=== PATIENT | female | born 1970 | race Hispanic/Latino ===

== ENCOUNTER 2017-08-17 14:49 | Emergency (ER) | payer OTHER ==
[~2017-08-17] VITALS: Ht 172.7 cm; Wt 68.5 kg
[~2017-08-17 14:49] MED LIST: AMOXICILLIN500 MG PO; INDOCIN50 MG PO
[2017-08-17] MEDS ORDERED: MOTRIN800 MG PO (15:59)
[2017-08-17] MEDS ORDERED: FLEXERIL10 MG PO (15:59)
[2017-08-17] MEDS ORDERED: LIDODERM 5% P1 PATCH TD (15:59)
[2017-08-17 16:54] VITALS: BP 113/69
== END 2017-08-17 17:07 | disposition home or self-care (01) ==
LOC: EME 14:49
DX: M54.2 Cervicalgia (principal); M25.511 Pain in right shoulder; M25.512 Pain in left shoulder; V49.40XA Driver injured in collision with unspecified motor vehicles in traffic accident, initial encounter; Y92.410 Unspecified street and highway as the place of occurrence of the external cause
CPT/HCPCS: 72040; 99281; 99284